=== PATIENT | female | born 1975 | race Hispanic/Latino ===

== ENCOUNTER 2018-08-29 06:46 | Day surgery (SDC) | payer MEDICARE ==
[~2018-08-29] VITALS: Ht 149.9 cm; Wt 72.6 kg
[2018-08-29] VITALS (7 sets, daily range): BP systolic 87–113; BP diastolic 46–67
[~2018-08-29 06:46] MED LIST: AMIT50TA3 PO; METO25TA6 PO; SODIUM CHLORIDE 0.9% 1000ML 1,000 ML IV ONE
[2018-08-29] MEDS ORDERED: PROPOFOL 10 MG/ML 20ML VIAL IV ONE (08:35)
--- NOTE | 2018-08-29 09:24 | NUR ---
DC PT DC HOME VIA WC,NO DISTRESS NOTED. DENIED ANY PAIN OR DISCOMFORTS. ACCOMPANIED BY FAMILY, ALL DC INSTRUCTIONS GIVEN TO PT /FAMILY WITH F/U APPOINTMENT
== END 2018-08-29 09:24 | disposition home or self-care (01) ==
LOC: ENDO 06:46 → DAH 06:46 → ENDO 09:24
PROVIDERS: ATTEND Internal Medicine
DX: K57.30 Diverticulosis of large intestine without perforation or abscess without bleeding (principal); K64.0 First degree hemorrhoids; K29.50 Unspecified chronic gastritis without bleeding; B96.81 Helicobacter pylori [H. pylori] as the cause of diseases classified elsewhere; K20.9 Esophagitis, unspecified; K22.8 Other specified diseases of esophagus; K31.89 Other diseases of stomach and duodenum; R12 Heartburn; Z86.73 Personal history of transient ischemic attack (TIA), and cerebral infarction without residual deficits
CPT/HCPCS: 36415; 43239; 45380; 84703; 88305; 88342; A4606; J2704; J7030; 45378

== ENCOUNTER → 2020-07-16 | Outpatient (CLI) | payer MEDICARE ==
[~2020-07-16] MED LIST changes: -SODIUM CHLORIDE 0.9% 1000ML 1,000 ML IV ONE
== END | disposition home or self-care (01) ==
LOC: RAH 13:33
PROVIDERS: ATTEND Physical Medicine & Rehabilitation
DX: M50.223 Other cervical disc displacement at C6-C7 level (principal); M48.02 Spinal stenosis, cervical region; M62.838 Other muscle spasm
CPT/HCPCS: 72141

== ENCOUNTER 2024-11-03 10:53 | Emergency (ER) | payer MEDICARE ==
[~2024-11-03] VITALS: Ht 149.9 cm; Wt 85.3 kg
[~2024-11-03 10:53] MED LIST changes: +AMIT50TA14 PO; -AMIT50TA3 PO
[2024-11-03] MEDS ORDERED: METH4TAB3 PO (11:02)
[2024-11-03] MEDS ORDERED: DIPH50CA38 PO (11:02)
--- NOTE | 2024-11-03 11:03 | ERN ---
ED Note History of Present Illness Stated Complaint: GENERALIZED RASH Chief Complaint: Skin Rash/Abscess Time Seen by MD: 10:55 Dictation: Patient is a 48-year-old female coming in today with a macular rash that is pruritic onset was 4-5 days prior to arrival. She states she has had some chills however in triage she was afebrile. No shortness a breath no angioedema she denies any new soaps foods detergents closed etc.. She states she took Benadryl yesterday and it did not go away she is came to the emergency room. States she has not been to see her primary care doctor. Allergies: Coded Allergies: Penicillins (Unverified Allergy, Unknown, 08/28/18) aspirin (Unverified Allergy, Unknown, 08/28/18) Home Meds Reported Medications Metoprolol Tartrate (Metoprolol Tartrate) 25 Mg Tablet, 25 MG PO BID, TAB 08/28/18 Amitriptyline HCl (Amitriptyline HCl) 50 Mg Tablet, 50 MG PO DAILY, TAB 08/28/18 Past Medical History History: Not Applicable RN Note Reviewed/Agreed w/PFSH: Yes Review of System Dictation CONSTITUTIONAL: Negative except for HPI HEAD/FACE: Negative except for HPI EENT: Negative except for HPI RESPIRATORY: Negative except for HPI GASTROINTESTINAL/ABDOMINAL: Negative except for HPI GENITOURINARY: Negative except for HPI MUSCULOSKELETAL: Negative except for HPI INTEGUMENTARY: Negative except for HPI diffuse macular pruritic rash NEUROLOGICAL/PSYCH: Negative except for HPI HEMATOLOGIC/LYMPHATIC: Negative except for HPI All Systems Negative, Except as noted above. 13 point review of systems assessed and all negative except for above. Physical Exam Dictation Vital Signs reviewed General Appearance: Alert, oriented x 3, mild obese acute distress, well developed, nourished. Head and Face: non-traumatic. Eyes: PERRL, pink conjunctivas, eyelid no trauma, anterior chamber with arcus senilis. Ears: Pinnas intact and no signs of trauma or erythema ear canals clear and no discharge TM no erythema Nose: No discharge, no bleeding. Oropharynx: Mouth normal, tongue pink, no angioedema voice is clear. pharynx clear,no erythema, tonsils no exudates, no abscesses noted, mucous membrane moist Neck: Supple, non-tender, no thyromegaly, no masses, no JVD, no bruits Breast:Deferred Chest:No tenderness, no crepitus, no paradoxical movement, no retractions Lungs:Clear, well-ventilated, symmetric, no rales, no wheezing, no rhonchi, no stridor, good breath sounds bilaterally Heart: Regular rate, regular rhythm, no murmur, no gallops Vascular: no peripheral edema, Abdomen: Soft, positive bowel sounds, nondistended, no guarding, nontender, no rebound, no masses no hepatomegaly, no splenomegaly, no Lovelace's sign, no hernias. Rectal: Deferred Genital: Deferred Neurological: Normal speech, motor function intact, sensory function intact Musculoskeletal: Neck nontender, full range of motion, back nontender, full r yony of motion, Extremities: nontender, full range of motion Skin: Color pink diffuse macular rash to body, no angioedema bilateral breath sounds clear. Lymphatic: Deferred Results (Laboratory/Radiology) Labs Reviewed?: Yes ED Course ED Course Orders Procedure Category Date Status Time Dexamethasone 4mg/Ml PHA 11/03/24 Verified 1ml Vial (Dexametha 11:00 Famotidine 20mg Tab PHA 11/03/24 Verified (Pepcid 20mg Tab) 11:00 Medical Decision Making MDM 1100/medical decision-making based on empiric treatment for a an acute rash possible allergic reaction Patient given Decadron and Pepcid She will be prescribed the same and told to see her doctor tomorrow DX & DISP Disposition: Discharge Departure Impression: Primary Impression: Allergic reaction Additional Impression: Rash Condition: Stable Scripts Diphenhydramine HCl (Benadryl) 50 Mg Cap 50 MG PO Q6H for itching/rash, #20 CAP 0 Refills Prov: STELLA LINDA NP 11/03/24 Methylprednisolone (Medrol) 4 Mg Tab.ds.pk 1 TAB PO AD for 6 Days, #21 TAB 0 Refills 6 on day 1 then reduce by one tablet daily until gone Prov: STELLA LINDA NP 11/03/24 Additional Instructions: Follow-up with primary care provider in 1 to 2 days. Take medications as directed here in the emergency room. Okay to continue home medications unless otherwise discussed during your visit in the emergency room today. Return to your nearest emergency room if symptoms worsen or if there is no improvement. Call 911 if you need immediate assistance. Take Tylenol or Motrin [id number] as needed and if no contraindications are present. Increase oral hydration. A wound culture or urine culture was ordered here in the emergency room department please follow-up with primary care provider and advise them to get repeat ports from our facility. If you had any Yassine wrap/splints that were applied here, please do not remove them until you see your primary care or specialty. Take Benadryl every 6 hours for three more doses. Take Medrol Dosepak as directed until gone. Follow up with your primary care doctor for management Referrals: PAVEL AKERS (PCP) Time of Disposition: 11:02 I have reviewed the case, and I agree with, Diagnosis and Plan STELLA LINDA NP Nov 03, 2024 11:03
[2024-11-03 11:25] VITALS: BP 109/62; PULSE 90; RESP 18; TEMP 98.7; O2SAT 98
[2024-11-03] MEDS: FAMOTIDINE 20MG TAB PO ONE (11:41)
== END 2024-11-03 11:48 | disposition home or self-care (01) ==
LOC: EDH 10:53
DX: T78.40XA Allergy, unspecified, initial encounter (principal); Z79.899 Other long term (current) drug therapy; Z88.0 Allergy status to penicillin; Z88.6 Allergy status to analgesic agent; X58.XXXA Exposure to other specified factors, initial encounter
CPT/HCPCS: 99283; 96372; J1100